=== PATIENT | male | born 1980 | race Caucasian/White ===

== ENCOUNTER 2018-06-07 12:04 | Emergency (ER) | payer OTHER ==
[~2018-06-07] VITALS: Ht 177.8 cm; Wt 86.2 kg
[2018-06-07 13:07] LABS: BASOPHILS % (AUTO) 1 % (0-10); EOSINOPHILS # (AUTO) 0.2 10^3/uL (0.0-0.3); EOSINOPHILS % (AUTO) 3 % (0-10); HEMATOCRIT 43 % (40-54); HEMOGLOBIN 15.3 G/DL (13.3-17.7); LYMPHOCYTES # (AUTO) 1.2 X 10^3 (1.0-4.0); LYMPHOCYTES % (AUTO) 21 % (12-44); MEAN CORPUSCULAR HEMOGLOBIN 31 PG (25-34); MEAN CORPUSCULAR HGB CONC 36 G/DL (32-36); MEAN CORPUSCULAR VOLUME 88 FL (80-99); MEAN PLATELET VOLUME 11.1 FL (7.4-10.4); MONOCYTES # (AUTO) 0.3 X 10^3 (0.0-1.0); MONOCYTES % (AUTO) 5 % (0-12); NEUTROPHILS # (AUTO) 3.9 X 10^3 (1.8-7.8); NEUTROPHILS % (AUTO) 71 % (42-75); PLATELET COUNT 190 10^3/uL (130-400); RED BLOOD COUNT 4.87 10^6/uL (4.35-5.85); RED CELL DISTRIBUTION WIDTH 12.5 % (10.0-14.5); WHITE BLOOD COUNT 5.5 10^3/uL (4.3-11.0)
[2018-06-07 13:25] LABS: ALANINE AMINOTRANSFERASE 49 U/L (0-55); ALBUMIN 4.2 GM/DL (3.2-4.5); ALKALINE PHOSPHATASE 70 U/L (40-136); BILIRUBIN,TOTAL 0.6 MG/DL (0.1-1.0); BUN/CREATININE RATIO 15; CALCIUM 9.3 MG/DL (8.5-10.1); CARBON DIOXIDE 21 MMOL/L (21-32); CHLORIDE 106 MMOL/L (98-107); CREATININE SERUM 1.06 MG/DL (0.60-1.30); GFR ESTIMATED > 60; GLUCOSE 150 MG/DL (70-105); MAGNESIUM 2.3 MG/DL (1.8-2.4); POTASSIUM 4.3 MMOL/L (3.6-5.0); SODIUM 138 MMOL/L (135-145); TOTAL PROTEIN 7.1 GM/DL (6.4-8.2)
[2018-06-07] MEDS ORDERED: NS IV 1000 ML 1,000 ML IV SCH (13:31)
--- NOTE | 2018-06-07 13:59 | ED Syncope ---
General Chief Complaint: Dizziness/Syncope Stated Complaint: LIGHT HEADED Nursing Triage Note: PT AMB TO ROOM #4 W/O DIFFICULTY. A&OX4. UPON ARRIVAL TO ED PT NOTED TO BE COOL TO TOUCH AND PALE. PT REPORTS APPROX 0730 PT WALKED TO RESTROOM, BEGAN TO PEE, AND COLLAPSED TO HIS KNEES, CATCHING HIMSELF ON THE TOILET. PT DENIES HITTING HEAD. PT REPORTS SINCE EPISODE HE HAS BEEN FEELING LIGHT HEADED, NAUSEOUS, AND DIZZY WITH COLD SWEATS. PT REPORTS AFTER EPISODE HE DEVELOPED MUFFLED HEARING AND FELT "DISORIENTED." REPORTS INCREASE IN VENLAFAXINE. Source of Information: Patient Exam Limitations: No Limitations History of Present Illness Date Seen by Provider: Jun 07, 2018 Time Seen by Provider: 13:32 Initial Comments Patient is a 37-year-old male who presents to the emergency room with complaints of lightheadedness and dizzy. He reports waking up at 0 7:30 this morning to use the restroom and he was urinating when he became dizzy and fell to his knees, he reports catching himself on the toilet and denies injury from the episode. He reports taking Venlafaxine for depression and had a recent increase in this medication with his first increased dose being yesterday. He did have slight blood pressure changes from lying to standing 128 systolic to 108 systolic on orthostatic blood pressure checks. Timing/Prior Episodes: No Prior History Symptoms Prior to Episode: None Current Symptoms: Dizziness Allergies and Home Medications Allergies Coded Allergies: No Known Drug Allergies (Unverified , 06/07/18) Patient Home Medication List Home Medication List Reviewed: Yes Review of Systems Constitutional: see HPI, dizziness Cardiovascular: see HPI, syncope All Other Systems Reviewed Negative Unless Noted: Yes Past Zivjoiz-Gwitqk-Sjprgd Hx Past Med/Social Hx: Reviewed Nursing Past Med/Soc Hx Patient Social History Alcohol Use: Regular Use Number of Drinks Today: 0 Alcohol Beverage of Choice: Beer Recreational Drug Use: No Smoking Status: Former Smoker Type Used: Cigarettes Former Smoker, Quit: Jul 09, 2003 2nd Hand Smoke Exposure: No Recent Foreign Travel: No Contact w/Someone Who Travel: No Recent Infectious Disease Expo: No Recent Hopitalizations: No Seasonal Allergies Seasonal Allergies: No Past Medical History Surgeries: No Respiratory: Yes Pneumonia, Sleep Apnea Currently Using CPAP: Yes Currently Using BIPAP: No Cardiac: Yes Heart Murmur, Hypertension Neurological: No Genitourinary: No Gastrointestinal: No Musculoskeletal: No Endocrine: No HEENT: No Cancer: No Psychosocial: Yes (AGORAPHOBIA) Anxiety, PTSD, Depression Integumentary: No Blood Disorders: No Family Medical History Reviewed Nursing Family Hx Physical Exam Vital Signs Vital Signs - First Documented 06/07/18 12:32 Temp 96.8 Pulse 107 Resp 18 B/P (MAP) 128/93 (105) Pulse Ox 97 O2 Delivery Room Air Capillary Refill : Less Than 3 Seconds Height, Weight, BMI Height: 5'10.00" Weight: 190lbs. oz. 86.462293qc; BMI Method:Stated General Appearance: No Apparent Distress, WD/WN Neck: Full Range of Motion, Normal Inspection, Non Tender, Supple Cardiovascular: Regular Rate, Rhythm, No Edema, No Gallop, No JVD, No Murmur, Normal Peripheral Pulses Respiratory: Chest Non Tender, Lungs Clear, Normal Breath Sounds, No Accessory Muscle Use, No Respiratory Distress Gastrointestinal: Normal Bowel Sounds, No Organomegaly, No Pulsatile Mass, Non Tender, Soft Extremities: Normal Capillary Refill, No Calf Tenderness, No Pedal Edema Neurologic/Psychiatric: Alert, Oriented x3, Normal Mood/Affect Cranial Nerves: Normal Hearing, Normal Speech, PERRL Coordination/Gait: Normal Finger to Nose Skin: Normal Color, Warm/Dry Progress/Results/Core Measures Results/Orders Lab Results Laboratory Tests Test 06/07/18 12:56 Range/Units White Blood Count 5.5 4.3-11.0 10^3/uL Red Blood Count 4.87 4.35-5.85 10^6/uL Hemoglobin 15.3 13.3-17.7 G/DL Hematocrit 43 40-54 % Mean Corpuscular Volume 88 80-99 FL Mean Corpuscular Hemoglobin 31 25-34 PG Mean Corpuscular Hemoglobin Concent 36 32-36 G/DL Red Cell Distribution Width 12.5 10.0-14.5 % Platelet Count 190 130-400 10^3/uL Mean Platelet Volume 11.1 H 7.4-10.4 FL Neutrophils (%) (Auto) 71 42-75 % Lymphocytes (%) (Auto) 21 12-44 % Monocytes (%) (Auto) 5 0-12 % Eosinophils (%) (Auto) 3 0-10 % Basophils (%) (Auto) 1 0-10 % Neutrophils # (Auto) 3.9 1.8-7.8 X 10^3 Lymphocytes # (Auto) 1.2 1.0-4.0 X 10^3 Monocytes # (Auto) 0.3 0.0-1.0 X 10^3 Eosinophils # (Auto) 0.2 0.0-0.3 10^3/uL Basophils # (Auto) 0.0 0.0-0.1 10^3/uL Sodium Level 138 135-145 MMOL/L Potassium Level 4.3 3.6-5.0 MMOL/L Chloride Level 106 98-107 MMOL/L Carbon Dioxide Level 21 21-32 MMOL/L Anion Gap 11 5-14 MMOL/L Blood Urea Nitrogen 16 7-18 MG/DL Creatinine 1.06 0.60-1.30 MG/DL Estimat Glomerular Filtration Rate > 60 BUN/Creatinine Ratio 15 Glucose Level 150 H 70-105 MG/DL Calcium Level 9.3 8.5-10.1 MG/DL Corrected Calcium 9.1 8.5-10.1 MG/DL Magnesium Level 2.3 1.8-2.4 MG/DL Total Bilirubin 0.6 0.1-1.0 MG/DL Aspartate Amino Transf (AST/SGOT) 28 5-34 U/L Alanine Aminotransferase (ALT/SGPT) 49 0-55 U/L Alkaline Phosphatase 70 40-136 U/L Total Protein 7.1 6.4-8.2 GM/DL Albumin 4.2 3.2-4.5 GM/DL My Orders Orders - FLAVIA MACIEL Saline Lock/Iv-Start (06/07/18 13:31) Ns Iv 1000 Ml (Sodium Chloride 0.9%) (06/07/18 13:31) Vital Signs/I&O 06/07/18 06/07/18 12:32 14:45 Temp 96.8 96.8 Pulse 107 90 Resp 18 18 B/P (MAP) 128/93 (105) 128/93 (105) Pulse Ox 97 98 O2 Delivery Room Air Room Air Blood Pressure Mean: 105 Progress Progress Note : Time: 14:37 Progress Note Patient is feeling much better at this time. He does no longer dizzy after fluid administration. He agrees with plan of care, plans for follow-up, return precautions were given. Voices no questions or concerns. Departure Impression Primary Impression: Syncopal episodes Disposition: 01 HOME, SELF-CARE Condition: Stable/Unchanged Departure-Patient Inst. Decision time for Depature: 14:36 Patient Instructions: Syncope (Fainting) (DC) Add. Discharge Instructions: Resume your home medications as previously prescribed. Drink when he clear liquids to stay hydrated water. Follow-up with your primary care provider as needed. Return back to the emergency room for any worsening symptoms or concerns as needed. All discharge instructions reviewed with patient and/or family. Voiced understanding. Work/School Note: Work Release Form Date Seen in the Emergency Department: Jun 07, 2018 Return to Work: Jun 09, 2018 Restrictions: No Restrictions FLAVIA MACIEL Jun 07, 2018 13:59
[2018-06-07 14:45] VITALS: BP 128/93
== END 2018-06-07 14:45 | disposition home or self-care (01) ==
LOC: ER 12:06
DX: R55 Syncope and collapse (principal); G47.30 Sleep apnea, unspecified; I10 Essential (primary) hypertension; F41.9 Anxiety disorder, unspecified; F43.10 Post-traumatic stress disorder, unspecified; F32.9 Major depressive disorder, single episode, unspecified; Z87.891 Personal history of nicotine dependence; Z87.01 Personal history of pneumonia (recurrent)
CPT/HCPCS: 36415; 80053; 83735; 85025; 93005; 93041; 96360

== ENCOUNTER → 2021-06-22 | Outpatient (CLI) | payer OTHER ==
--- NOTE | 2021-06-22 09:29 | Diagnostic Imaging Report ---
Indication: Right knee pain 2 views of the right knee shows no fracture, dislocation or other abnormality. IMPRESSION: Normal right knee. Dictated by: Dictated on workstation # [id number]
== END ==
LOC: RAD 08:48
PROVIDERS: ATTEND Anesthesiology Pain Medicine
DX: Z02.71 Encounter for disability determination (principal); M25.561 Pain in right knee
CPT/HCPCS: 73560

== ENCOUNTER 2022-09-14 05:30 | Outpatient (CLI) | payer OTHER ==
[~2022-09-14] VITALS: Ht 180.3 cm; Wt 84.5 kg
[2022-09-15] MEDS ORDERED: ZOLP5TAB7 PO (13:58)
[2022-09-15] MEDS ORDERED: ROSU5TAB13 PO (13:58)
[2022-09-15] MEDS ORDERED: CYAN500T44 PO (13:58)
[2022-09-15] MEDS ORDERED: VENL225T PO (13:58)
[2022-09-15] MEDS ORDERED: PANT40TA52 PO (13:58)
[2022-09-15] MEDS ORDERED: LISI20TA26 PO (13:58)
[2022-09-15] MEDS ORDERED: ROPI0.253 PO (13:58)
[2022-09-15] MEDS ORDERED: CHOL-34 PO (13:58)
== END 2022-09-18 16:43 | disposition home or self-care (01) ==
LOC: PREOP 05:30
PROVIDERS: ATTEND Otolaryngology Otolaryngology/Facial Plastic Surgery
DX: Z01.818 Encounter for other preprocedural examination (principal)

== ENCOUNTER 2022-09-22 05:49 | Day surgery (SDC) | payer OTHER ==
[~2022-09-22] VITALS: Ht 180.3 cm; Wt 84.5 kg
[2022-09-22] VITALS (11 sets, daily range): BP systolic 120–140; BP diastolic 79–102
[~2022-09-22 05:49] MED LIST: CHOL-34 PO; CYAN500T44 PO; LISI20TA26 PO; PANT40TA52 PO; ROPI0.253 PO; ROSU5TAB13 PO; VENL225T PO; ZOLP5TAB7 PO
[2022-09-22] MEDS ORDERED: LACTATED RINGERS 1,000 ML IV PRN (06:30)
--- NOTE | 2022-09-22 06:57 | Progress Note-Pre Operative ---
Pre-Operative Progress Note Date of Available H&P: Sep 22, 2022 Date H&P Reviewed: Sep 22, 2022 Time H&P Reviewed: 06:30 History & Physical: H&P Reviewed, Patient Examed, No changes noted Changes from last HP none Pre-Operative Diagnosis: Lesion-Uvula ROBERT SELLERS MD Sep 22, 2022 06:57
--- NOTE | 2022-09-22 06:58 | Progress Note-Post Operative ---
Post-Operative Progess Note Surgeon (s)/Product Safety Compliance Leader (s) Surgeon ROBERT SELLERS MD Product Safety Compliance Leader n/a Pre-Operative Diagnosis Lesion-Uvula Post-Operative Diagnosis same Post-Op Procedure Note Date of Procedure: Sep 22, 2022 Name of Procedure Performed: Excision of Lesion-Uvula Description & Findings Description and Findings: n/a Anesthesia Type get Estimated Blood Loss minimal Packing none. Specimen(s) collected/removed lesion-Uvula ROBERT SELLERS MD Sep 22, 2022 06:58
[2022-09-22] MEDS ORDERED: APAP 325 MG/10.15 ML LIQ (TYLENOL) UDC PO PRN (07:00)
[2022-09-22] MEDS ORDERED: NS IV 1000 ML 1,000 ML IV SCH (07:00)
[2022-09-22] MEDS ORDERED: HYDROcodone/APAP 5 MG/325 MG (LORTAB) TAB PO PRN (07:00)
[2022-09-22] MEDS ORDERED: LIDOCAINE 2% VISCOUS 15 ML UDC PO PRN (07:00)
[2022-09-22] MEDS ORDERED: SUCCINYLCHOLINE INJ 20 MG/1 ML 10 ML VIAL ONE (07:51)
[2022-09-22] MEDS ORDERED: fentaNYL INJ 100 MCG/2 ML AMP ONE (07:51)
[2022-09-22] MEDS ORDERED: LIDOCAINE PF 2% 5 ML (XYLOCAINE) VIAL ONE (07:51)
[2022-09-22] MEDS ORDERED: MIDAZOLAM 2 MG/2 ML (VERSED) VIAL ONE (07:51)
[2022-09-22] MEDS ORDERED: proPOfol 200 MG/20 ML (DIPRIVAN) VIAL IV ONE (07:51)
[2022-09-22] MEDS ORDERED: ROCURONIUM 50 MG/5 ML (ZEMURON) VIAL IV ONE (07:51)
[2022-09-22] MEDS ORDERED: ONDANSETRON 4 MG/2 ML (SDV) Z0FRAN ONE (07:51)
[2022-09-22] MEDS ORDERED: LIDOCAINE 1% INJ 20 ML VIAL ONE (08:02)
[2022-09-22] MEDS ORDERED: LIDOCAINE/EPI 1%-1:100,000 (XYLOCAINE) 20ML ONE (08:02)
[2022-09-22] MEDS ORDERED: SEVOFLURANE (ULTANE) 15 ML INHAL SOLN ONE (08:31)
[2022-09-22] MEDS ORDERED: ONDANSETRON 4 MG/2 ML (SDV) Z0FRAN IVP PRN (09:00)
[2022-09-22] MEDS ORDERED: morphine INJ 10 MG/ML 1ML (SYR OR VIAL) IVP ONE (09:00)
[2022-09-22] MEDS ORDERED: MEPERIDINE (DEMEROL) INJ 50 MG/ML IVP ONE (09:00)
[2022-09-22] MEDS ORDERED: HYDROmorphone 2 MG/ML VIAL (DILAUDID) IV ONE (09:00)
--- NOTE | 2022-09-22 10:13 | Anesthesia-General Post-Op ---
General Patient Condition Mental Status/LOC: Same as Preop Cardiovascular: Satisfactory Nausea/Vomiting: Absent Respiratory: Satisfactory Pain: Controlled Complications: Absent Post Op Complications Complications None Follow Up Care/Instructions Patient Instructions None needed. Anesthesia/Patient Condition Patient Condition Patient is doing well, no complaints, stable vital signs, no apparent adverse anesthesia problems. No complications reported per nursing. DINORAH PÉREZ CRNA Sep 22, 2022 10:13
[2022-09-22] MEDS ORDERED: TETRACAINESUCKERS MT (10:23)
[2022-09-22] MEDS ORDERED: ACHD5005 PO (10:23)
[2022-09-22] MEDS ORDERED: VISCOUS LIDOCAINE PO (10:26)
== END 2022-09-22 10:45 | disposition home or self-care (01) ==
LOC: SDC 05:49
PROVIDERS: ATTEND Otolaryngology Otolaryngology/Facial Plastic Surgery
DX: D10.39 Benign neoplasm of other parts of mouth (principal); G47.30 Sleep apnea, unspecified; Z91.199 Patient's noncompliance with other medical treatment and regimen due to unspecified reason
CPT/HCPCS: 87081